=== PATIENT | male | born 1965 | race Caucasian/White ===

== ENCOUNTER → 2016-03-03 | Outpatient (REF) | payer OTHER ==
[2016-03-03 20:17] LABS: BACTERIA, URINE NONE SEEN; RBC, URINE 15-20 /hpf (0-3); SQUAMOUS EPITHELIAL CELL URINE SMALL AMOUNT /hpf (SMALL AMT)
[2016-03-03 20:18] LABS: HYALINE CAST, URINE NONE SEEN /lpf (0-1); MICROSCOPIC EXAM PERFORMED
== END ==
LOC: M LAB REF 16:31
PROVIDERS: ATTEND Nurse Practitioner Adult Health
DX: M54.5 Low back pain (principal)